=== PATIENT | male | born 1975 | race Hispanic/Latino ===

== ENCOUNTER 2023-06-12 15:03 | Emergency (ER) | payer OTHER ==
[~2023-06-12] VITALS: Ht 157.5 cm; Wt 95.3 kg
[2023-06-12 15:36] VITALS: BP 147/93; PULSE 73; RESP 18
[2023-06-12] MEDS ORDERED: CEPH500B PO (15:57)
== END 2023-06-12 17:58 | disposition home or self-care (01) ==
LOC: EDH 15:03
DX: L03.032 Cellulitis of left toe (principal); L60.0 Ingrowing nail